=== PATIENT | female | born 1990 | race Caucasian/White ===

== ENCOUNTER 2017-11-25 08:37 | Emergency (ER) | payer MEDICAID ==
[~2017-11-25] VITALS: Ht 165.1 cm; Wt 122.0 kg
[2017-11-25 08:38] VITALS: Ht 165.1 cm; Wt 122.0 kg
[2017-11-25 12:47] VITALS: BP 138/81
== END 2017-11-25 12:47 | disposition home or self-care (01) ==
LOC: ED 08:37
DX: M54.5 Low back pain (principal); E66.01 Morbid (severe) obesity due to excess calories; Z88.6 Allergy status to analgesic agent
CPT/HCPCS: J1100; J1885

== ENCOUNTER 2018-07-22 11:15 | Emergency (ER) | payer BC ==
[~2018-07-22] VITALS: Ht 160 cm; Wt 128.8 kg
[2018-07-22 11:33] VITALS: Ht 160 cm; Wt 128.8 kg
[2018-07-22 12:39] VITALS: BP 149/94
== END 2018-07-22 12:10 | disposition home or self-care (01) ==
LOC: ED 11:15
DX: J06.9 Acute upper respiratory infection, unspecified (principal); Z88.6 Allergy status to analgesic agent

== ENCOUNTER 2018-11-26 23:56 | Emergency (ER) | payer BC ==
[~2018-11-26] VITALS: Ht 162.6 cm; Wt 121.8 kg
[2018-11-27 00:35] VITALS: BP 147/94
== END 2018-11-27 00:35 | disposition home or self-care (01) ==
LOC: ED 23:56
DX: J02.9 Acute pharyngitis, unspecified (principal); I10 Essential (primary) hypertension; Z88.6 Allergy status to analgesic agent

== ENCOUNTER 2019-05-13 09:58 | Emergency (ER) | payer BC ==
[~2019-05-13] VITALS: Ht 162.6 cm; Wt 124.7 kg
[2019-05-13 10:01] VITALS: Ht 162.6 cm; Wt 124.7 kg
[2019-05-13 11:12] VITALS: BP 159/78
== END 2019-05-13 11:12 | disposition home or self-care (01) ==
LOC: ED 09:58
DX: S93.402A Sprain of unspecified ligament of left ankle, initial encounter (principal); S80.211A Abrasion, right knee, initial encounter; I10 Essential (primary) hypertension; Z88.6 Allergy status to analgesic agent; X50.1XXA Overexertion from prolonged static or awkward postures, initial encounter; Y93.89 Activity, other specified; Y92.89 Other specified places as the place of occurrence of the external cause; Y99.8 Other external cause status

== ENCOUNTER 2019-12-06 12:24 | Emergency (ER) | payer BC ==
[~2019-12-06] VITALS: Ht 162.6 cm; Wt 121.1 kg
[2019-12-06 13:10] VITALS: BP 157/88; Ht 162.6 cm; Wt 121.1 kg
== END 2019-12-06 14:10 | disposition home or self-care (01) ==
LOC: ED 12:24
DX: K08.89 Other specified disorders of teeth and supporting structures (principal); H92.02 Otalgia, left ear; I10 Essential (primary) hypertension; Z88.6 Allergy status to analgesic agent

== ENCOUNTER 2020-01-30 00:19 | Emergency (ER) | payer BC ==
[~2020-01-30] VITALS: Ht 162.6 cm; Wt 118.4 kg
[2020-01-30 00:28] VITALS: Ht 162.6 cm; Wt 118.4 kg
[2020-01-30 02:18] LABS: microscopic required? YES; urine erythrocyte 2+ (NEGATIVE)
[2020-01-30 02:59] LABS: BASOPHIL % 0.3 % (0-2); PLATELET COUNT 283 x10^3mcL (130-400); RED CELL DISTRIBUTION WIDTH 13.6 % (11.5-14.5)
[2020-01-30 03:31] LABS: ALBUMIN 3.4 g/dL (3.4-5.0); ALKALINE PHOSPHATASE 195 U/L (46-116); ALT/SGPT 160 U/L (14-59); AMYLASE 56 U/L (25-115); AST/SGOT 111 U/L (15-37); BILIRUBIN TOTAL 0.3 mg/dL (0.20-1.00); CALCIUM 9.5 mg/dL (8.5-10.1); CARBON DIOXIDE 27.2 mmol/L (21-32); CHLORIDE SERUM 94 mmol/L (98-107); GFR1 > 60 mL/min; LIPASE 118 IU/L (73-393); MAGNESIUM 1.9 mg/dL (1.8-2.4); SODIUM SERUM 130 mmol/L (136-145)
[2020-01-30 03:35] LABS: TOTAL PROTEIN, SERUM 8.8 g/dL (6.4-8.2)
[2020-01-30 03:36] LABS: GLUCOSE SERUM 455 mg/dL (74-106)
[2020-01-30 06:06] VITALS: BP 133/93
== END 2020-01-30 06:06 | disposition home or self-care (01) ==
LOC: ED 00:19
PROVIDERS: Emergency Medicine
DX: E11.9 Type 2 diabetes mellitus without complications (principal); E03.9 Hypothyroidism, unspecified; N76.0 Acute vaginitis; I10 Essential (primary) hypertension; Z88.5 Allergy status to narcotic agent
CPT/HCPCS: 82962; 87491; 87591; J7030

== ENCOUNTER 2020-02-22 11:17 | Emergency (ER) | payer BC ==
[~2020-02-22] VITALS: Ht 162.6 cm; Wt 116.1 kg
[2020-02-22 11:32] VITALS: BP 133/79; Ht 162.6 cm; Wt 116.1 kg
== END 2020-02-22 12:07 | disposition home or self-care (01) ==
LOC: ED 11:17
DX: K11.20 Sialoadenitis, unspecified (principal)

== ENCOUNTER 2020-03-15 23:51 | Emergency (ER) | payer BC ==
[~2020-03-15] VITALS: Ht 162.6 cm; Wt 114.3 kg
[2020-03-16 00:15] VITALS: Ht 162.6 cm; Wt 114.3 kg
[2020-03-16 01:20] VITALS: BP 177/109
== END 2020-03-16 01:20 | disposition home or self-care (01) ==
LOC: ED 23:51
DX: K08.89 Other specified disorders of teeth and supporting structures (principal); R00.2 Palpitations; I10 Essential (primary) hypertension; E11.9 Type 2 diabetes mellitus without complications; Z88.6 Allergy status to analgesic agent
CPT/HCPCS: 82962